=== PATIENT | female | born 1980 | race American Indian/Alaskan Native ===

== ENCOUNTER 2021-10-22 06:02 | Observation (INO) | payer OTHER ==
[2021-09-18 11:59] LABS: Basophils # (Auto) 0.1 K/mm3 (0.0-0.1); Eosinophils # (Auto) 0.1 K/mm3 (0.0-0.4); Eosinophils % (Auto) 2.3 % (0.0-4.3); Hemoglobin 13.6 gm/dl (10.1-14.3); Lymphocytes # (Auto) 2.3 K/mm3 (1.2-5.4); Mean Corpuscular HGB Conc 32 % (30-34); Mean Corpuscular Volume 96 fl (79-97); Monocytes # (Auto) 0.5 K/mm3 (0.0-0.8); Monocytes % (Auto) 9.1 % (0.0-7.3); Platelet Count 234 K/mm3 (140-440); Red Cell Distribution Width 13.5 % (13.2-15.2)
[2021-09-18 12:19] LABS: BUN/Creatinine Ratio 11; Blood Urea Nitrogen 9 mg/dL (7-17); Calcium 9.8 mg/dL (8.4-10.2); Hemolysis Index 0
[2021-10-17 08:48] LABS: Basophils % (Auto) 0.7 % (0.0-1.8); Eosinophils # (Auto) 0.1 K/mm3 (0.0-0.4); Eosinophils % (Auto) 1.6 % (0.0-4.3); Hematocrit 37.2 % (30.3-42.9); Hemoglobin 13.2 gm/dl (10.1-14.3); Lymphocytes # (Auto) 2.3 K/mm3 (1.2-5.4); Lymphocytes % (Auto) 42.1 % (13.4-35.0); Mean Corpuscular HGB Conc 36 % (30-34); Mean Corpuscular Volume 94 fl (79-97); Monocytes # (Auto) 0.5 K/mm3 (0.0-0.8); Monocytes % (Auto) 9.1 % (0.0-7.3); Platelet Count 216 K/mm3 (140-440); Red Blood Count 3.96 M/mm3 (3.65-5.03); Red Cell Distribution Width 14.5 % (13.2-15.2)
[2021-10-17 09:08] LABS: BUN/Creatinine Ratio 14; Blood Urea Nitrogen 13 mg/dL (7-17); Calcium 9.3 mg/dL (8.4-10.2); Hemolysis Index 11
--- NOTE | 2021-10-17 13:47 | Anesthesia Consultation ---
Anesthesia Consult and Med Hx Date of service: 10/22/21 - Airway Anesthetic Teeth Evaluation: Good ROM Head & Neck: Adequate Mental/Hyoid Distance: Adequate Mallampati Class: Class III Intubation Access Assessment: Possibly Difficult - Pulmonary Exam CTA: Yes - Cardiac Exam Cardiac Exam: RRR - Pre-Operative Health Status ASA Pre-Surgery Classification: ASA2 Proposed Anesthetic Plan: General Nerve Block: post op TAP prn - Pulmonary Hx Smoking: No Hx Respiratory Symptoms: No (asymptomatic COVID infection 09/18/21) - Cardiovascular System Hx Hypertension: No Hx Heart Attack/AMI: No - Central Nervous System CVA: No - Endocrine Hx Renal Disease: No Hx Liver Disease: No Hx Insulin Dependent Diabetes: No Hx Non-Insulin Dependent Diabetes: No Hx Thyroid Disease: No - Other Systems Hx Obesity: Yes (BMI 32) - Additional Comments Anesthesia Medical History Comments: No hx anesthetic complications.
--- NOTE | 2021-10-21 12:57 | History and Physical Report ---
History of Present Illness Date of examination: 10/17/21 Date of admission: 10/22/2021 Chief complaint: fibroids, heavy bleeding History of present illness: Pt here for preop for LAVH with BS. All risk/benefits/alternatives were d/w pt and questions were addressed and answered. Consents signed and placed on the chart. Pt was previously scheduled last month but tested positive for Covid 19 and had to be rescheduled. She has no sx today as will follow hospital protocol in terms of resting if needed. She has c/o pelvic pain and bleeding that is heavy at times for the last 6 months. I d/w pt that the procedure planned will address her bleeding but she still may have pain with sex. She expressed understanding and desires to proceed with the LAVH with BS. She does have just one ovary but is not sure which one she has. 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 of genital herpes: no Hx of STD: HPV Active Medications (reviewed today): ibuprofen 800 mg tablet (ibuprofen) Take 1 tablet by mouth every six to eight hours Current Allergies (reviewed today): No known allergies Past Medical History: Negative Past Medical History Past Surgical History: positive Oophrectomy-unsure which side for what sound like a dermoid cyst-2011 hernia repair Risk Factors: Smoked Tobacco Use: Never smoker Smokeless Tobacco Use: Never Passive Smoke Exposure: no HIV High Risk Behavior: no Exercise: yes Seatbelt Use: 100 % Physical Exam Appearance: well developed, well nourished, no acute distress Other Exams Lungs: no rales, rhonchi, or wheezes Heart: S1, S2, no murmur, rub, or gallop Abdomen: soft, non-tender, no masses, bowel sounds normal Extremities: normal alignment, no joint enlargement, crepitus, masses or tenderness; normal tone and strength Genitourinary Exam Comments: deferred until EUA Past History Past Medical History: other (see hpi) Past Surgical History: other (see hpi) Family/Genetic History: other (see hpi) Social history: other (see hpi) Medications and Allergies Allergies Allergy/AdvReac Type Severity Reaction Status Date / Time No Known Allergies Allergy Verified 10/16/21 16:19 Home Medications Medication Instructions Recorded Confirmed Last Taken Type No Known Home Medications [No 09/17/21 10/16/21 Unknown History Reported Home Medications] Active Meds: Active Medications Acetaminophen (Acetaminophen 500 Mg Tab) 1,000 mg PO PREOP MARIA DE JESUS Celecoxib (Celecoxib 200 Mg Cap) 200 mg PO PREOP NR Stop: 10/22/21 23:59 Gabapentin (Gabapentin 300 Mg Cap) 300 mg PO PREOP NR Stop: 10/22/21 06:01 Lactated Ringer's (Lactated Ringers) 1,000 mls @ 100 mls/hr IV DIRECT MARIA DE JESUS Stop: 10/22/21 23:59 Methocarbamol 1,000 mg/ Sodium (Chloride) 260 mls @ 250 mls/hr IV PREOP MARIA DE JESUS Midazolam HCl (Midazolam 2 Mg/2 Ml Inj) 2 mg IV PREOP NR Stop: 10/22/21 23:59 Scopolamine (Scopolamine Transdermal Patch 72 Hr) 1 each TD PREOP NR Stop: 10/22/21 23:59 Review of Systems All systems: negative - Vital Signs Vital signs: Vital Signs Temp Pulse Resp BP Pulse Ox 98.7 F 76 20 119/78 98 09/18/21 11:40 09/18/21 11:40 09/18/21 11:40 09/18/21 11:40 09/18/21 11:40 Temp Pulse Resp BP Pulse Ox 98.7 F 76 20 119/78 98 09/18/21 11:40 09/18/21 11:40 09/18/21 11:40 09/18/21 11:40 09/18/21 11:40 - Physical Exam Cardiovascular: Normal S1, Normal S2 Lungs: Positive: Clear to auscultation, Normal air movement Abdomen: Positive: normal appearance, soft. Negative: distention, tenderness, g uarding Genitourinary (Female): Positive: other (deferred until EUA) Results Result Diagrams: 10/17/21 08:40 10/17/21 08:40 All other labs normal. Assessment and Plan - Patient Problems (1) Fibroid Status: Acute Plan to address problem: -admit for above stated procedure -consent signed and placed on the chart (2) Pelvic pain Status: Acute (3) Menorrhagia Status: Acute
[~2021-10-22 06:02] MED LIST: ACETAMINOPHEN 500 MG TAB PO SCH; CELECOXIB 200 MG CAP PO NR; GABAPENTIN 300 MG CAP PO NR; LACTATED RINGERS 1,000 ML IV SCH; MIDAZOLAM 2 MG/2 ML INJ IV NR; SCOPOLAMINE TRANSDERMAL PATCH 72 HR TD NR; ceFAZolin/Water 2 GM/20 ML 2 GM/20 ML SYRINGE IV SCH; methOCARBAMOL 1,000 MG in SODIUM CHLORIDE 0.9% 250ML 250 ML IV SCH
[2021-10-22] MEDS ORDERED: BUPIVACAINE/PF (0.5%) 5 MG/1 ML 30 ML VIAL INFILTRATI ONE ×2 (07:16→09:15)
[2021-10-22] MEDS ORDERED: SODIUM CHLORIDE 0.9% 100 ML ONE (07:16)
[2021-10-22] MEDS ORDERED: VASOPRESSIN 20 UNIT/1 ML INJ ONE (07:17)
[2021-10-22] MEDS ORDERED: CITRIC ACID-SOD CITRATE 500 ML IV ONE (07:23)
[2021-10-22] MEDS ORDERED: HYDROmorphone 1 MG/1 ML INJ IV PRN (07:24)
--- NOTE | 2021-10-22 07:24 | Anesthesia Day of Surgery ---
Anesthesia Day of Surgery - Day of Surgery Patient Examined: Yes Patient H&P Reviewed: Yes Patient is NPO: Yes
[2021-10-22] MEDS ORDERED: HYDROmorphone 1 MG/1 ML INJ ONE (07:42)
[2021-10-22] MEDS ORDERED: fentaNYL 100 MCG/2 ML INJ ONE (07:42)
[2021-10-22] MEDS ORDERED: ROCURONIUM 50 MG/5 ML INJ IV ONE ×2 (07:42→09:32)
[2021-10-22] MEDS ORDERED: propofoL 200 MG/20 ML VIAL IV ONE (07:42)
[2021-10-22] MEDS ORDERED: LIDOCAINE MPF (2%) 20 MG/1 ML VIAL 5 ML ONE (07:42)
[2021-10-22] MEDS ORDERED: ONDANSETRON 4 MG/2 ML INJ ONE (07:42)
[2021-10-22] MEDS ORDERED: SODIUM CHLORIDE 0.9% IRR 1,500 ML BOTTLE IR ONE (09:14)
[2021-10-22] MEDS ORDERED: SODIUM CHLORIDE 0.9% IRRIG SOLN 2000 ML IR ONE (09:14)
[2021-10-22] MEDS ORDERED: VASOPRESSIN 20 UNIT/1 ML INJ IM ONE (09:14)
[2021-10-22] MEDS ORDERED: CITRIC ACID-SOD CITRATE SOLN 500 ML IV SOLN IV ONE (09:15)
[2021-10-22] MEDS ORDERED: dexAMETHasone 20 MG/5 ML VIAL ONE (09:32)
[2021-10-22] MEDS ORDERED: NEOSTIGMINE 10MG/10 ML INJ MDV ONE (10:39)
[2021-10-22] MEDS ORDERED: LACTATED RINGERS 1,000 ML ONE (10:39)
[2021-10-22] MEDS ORDERED: GLYCOPYRROLATE 0.4 MG/2 ML INJ ONE (10:39)
--- NOTE | 2021-10-22 11:01 | Operative Report ---
Operative Report Operative Report: Date of procedure: 10/22/2021 Pre-operative diagnosis: Fibroid uterus Pelvic pain Menorrhagia Post-operative diagnosis: Same Procedure name(s): Laparoscopic assisted vaginal hysterectomy Left salpingectomy Surgeon: Renee Rider MD Information Systems Technician: Dr. Aurora Michaels Anesthesia: General endotracheal anesthesia EBL: 150 mL Urine output: 500 mL of clear urine out at end of procedure Fluids: 1 L Findings: Normal left ovary with normal left fallopian tube noted. Right fallopian tube and ovary was noted to be absent consistent with patient history of having removal of the ovary. Globular uterus with uterine fibroids noted approximately 3 cm in diameter. Consistency of uterus is that of someone with adenomyosis. Will follow pathology. Indications: Patient presents with above-stated preoperative diagnosis. She desired definitive therapy. All risk benefits and alternatives were discussed with the patient. Consents were signed and placed in the chart. Procedure: Patient was taken to the operating room where she was placed under general endotracheal anesthesia. She was then prepped and draped in sterile fashion. It was at this point that the medium V care uterine manipulator was placed inside of the uterus after the uterus was sounded to approximately 12 cm. Guerrero catheter was also placed at this time. Attention was then turned to the umbilicus in which a supraumbilical incision was made. Under direct visualization the 5 mm trocar was placed inside the peritoneum the peritoneum was then insufflated. As at this point that the laparoscopic portion of the procedure was performed. 2 lateral 5 mm ports were also placed under direct visualization. Using the tripolar instrument the upper pedicles were cauterized and transected to the including round ligament with excellent hemostasis noted bilaterally. Attention was turned to the bladder flap which was also created laparoscopically. Attention was then turned vaginally. A weighted speculum was placed into the vagina and the cervix was grasped with a single-tooth tenaculum 2. The cervix was then injected circumferentially with Pitressin. The cervix was then circumferentially incised with the scalpel and the bladder dissected off of the pubovesical cervical fascia anteriorly with a sponge stick and Metzenbaum scissors. The same procedure was performed posteriorly and the posterior cul-de-sac was entered into sharply without difficulty. At this point a Codi Clamp was placed over the uterosacral ligaments on either side. These were then transected and suture ligated with 0 Vicryl. Hemostasis was assured. The cardinal ligaments were then clamped on both sides transected and suture ligated in similar fashion. The uterine arteries were then serially clamped with Codi clamps transected and suture ligated on both sides. Excellent hemostasis was visualized. After it was clear that the uterus had been completely from all pedicles the uterus was removed vaginally intact with cervix intact. The vaginal cuff angles were closed with figure of 8 stitches of 0 Vicryl on both sides. The peritoneum was incorporated in the stitching of the vaginal cuff. A series of interrupted figure of 8 sutures using 0 Vicryl were used to close the entire vaginal cuff. Excellent hemostasis was noted. The vagina was then irrigated copiously. Attention was then turned laparoscopically at which time. Again all pedicles were noted to be hemostatic. The ureters were identified bilaterally with peristalsis noted bilaterally. All instruments were then removed from the abdomen and the vagina. All gas was released from the abdomen. The abdominal incisions were closed using 4-0 Monocryl. All of the abdominal incisions were injected with Marcaine without epi. Patient tolerated the procedure well sponge lap and needle counts were all correct 3 the patient was taken to the recovery room awake and in stable condition.
--- NOTE | 2021-10-22 12:00 | Post Anesthesia Evaluation ---
- Post Anesthesia Evaluation Patient Participated: Yes Airway Patent: Yes Stable Respiratory Function: Yes Nausea/Vomiting: No Temp > 96.8F: Yes Pain Manageable: Yes Adequeate Hydration: Yes Anesthesia Complications: No
[2021-10-22] MEDS ORDERED: HYDROcodone/ACETAMINOPHEN 5-325 MG TAB PO PRN (12:30)
[2021-10-22] MEDS ORDERED: KETOROLAC 30 MG/1 ML INJ IV PRN (12:30)
[2021-10-22] MEDS ORDERED: IBUPROFEN 800 MG TAB PO PRN (12:30)
[2021-10-22] MEDS ORDERED: ACETAMINOPHEN 325 MG TAB PO PRN ×2 (12:30→15:30)
[2021-10-22] MEDS ORDERED: ONDANSETRON 4 MG/2 ML INJ IV PRN (12:30)
[2021-10-22] MEDS: MORPHINE 4 MG/1 ML INJ IV PRN ×2 (13:12→22:14)
[2021-10-22] MEDS ORDERED: MORPHINE 2 MG/1 ML INJ IV ONE ×2 (14:29)
[2021-10-22] MEDS: ceFAZolin/NS 1 GM/50 ML 1 GM/50 ML BAG IV SCH (16:19)
[2021-10-22] MEDS: KETOROLAC 30 MG/1 ML INJ IV SCH (17:45)
[2021-10-22] MEDS ORDERED: METOCLOPRAMIDE 10 MG/2 ML INJ IV PRN (17:48)
[2021-10-22] MEDS ORDERED: METOCLOPRAMIDE 10 MG/2 ML INJ IV ONE (17:54)
[2021-10-22] MEDS ORDERED: D5W/LACTATED RINGERS 1,000 ML IV SCH (18:00)
[2021-10-22] MEDS: FAMOTIDINE 20 MG/2 ML INJ IV SCH (18:03)
[2021-10-22] MEDS: D5W/0.9% NACL 1,000 ML IV SCH (18:03)
[2021-10-22 20:07] LABS: Blood Urea Nitrogen 7 mg/dL (7-17); Hemolysis Index 2
[2021-10-22 20:08] LABS: BUN/Creatinine Ratio 10
[2021-10-23] MEDS: FAMOTIDINE 20 MG/2 ML INJ IV SCH (00:45)
[2021-10-23] MEDS: KETOROLAC 30 MG/1 ML INJ IV SCH ×2 (00:45→06:33)
[2021-10-23] MEDS: D5W/0.9% NACL 1,000 ML IV SCH (00:50)
[2021-10-23] MEDS: ceFAZolin/NS 1 GM/50 ML 1 GM/50 ML BAG IV SCH (00:51)
[2021-10-23 05:16] LABS: Hematocrit 33.4 % (30.3-42.9); Hemoglobin 11.2 gm/dl (10.1-14.3)
--- NOTE | 2021-10-23 08:52 | Progress Note ---
Assessment and Plan - Patient Problems (1) Fibroid Current Visit: No Status: Acute (2) Pelvic pain Current Visit: No Status: Acute (3) Menorrhagia Current Visit: No Status: Acute (4) S/P laparoscopic assisted vaginal hysterectomy (LAVH) Current Visit: Yes Status: Acute Plan to address problem: -routine post op care -n/v resolved. ADAT -plan for d/c this pm if tolerates breakfast and lunch w/o emesis Subjective - Subjective Date of service: 10/23/21 Principal diagnosis: POD #1 s/p LAVH and LS Interval history: Pt doing well states she has no nausea at this time and no emesis since yesterday pm. She has good bowel sounds on exam.She desires to eat this time. Will do clears now and progress to regular at lunch. I advised that if she does well we will plan for d/c home this pm. Pt smiling and states pain is well controlled. Findings of sx d/w pt. She states she did not do the bowel prep diet prior to sx. I advised that this combined with the narcotic meds she received my have induced nausea and emesis. She expressed understanding and agrees with plan of care. Patient reports: appetite normal, voiding normally, pain well controlled, no dizzy ambulation, no nauseated Objective - Vital Signs Latest vital signs: Vital Signs Temp Pulse Resp Resp BP BP Pulse Ox 10/23/21 07:29 98.4 F 74 18 106/53 100 10/23/21 06:33 16 10/23/21 04:15 98.6 F 69 16 117/67 10/23/21 00:45 16 10/22/21 22:14 18 10/22/21 22:00 18 98 10/22/21 19:55 98.5 F 106 H 18 119/70 100 10/22/21 18:22 98.5 F 86 20 134/73 100 10/22/21 12:15 97 10/22/21 12:10 97.7 F 77 16 145/83 96 10/22/21 12:00 97.7 F 79 17 145/83 97 10/22/21 11:45 68 15 120/63 99 10/22/21 11:30 70 13 118/63 98 10/22/21 11:15 69 15 104/61 99 10/22/21 11:09 72 13 120/73 100 10/22/21 11:04 83 14 116/69 100 10/22/21 10:59 98.0 F 78 12 106/54 100 Intake and Output 10/22/21 10/23/21 10/23/21 22:59 06:59 14:59 Intake Total 250 847.917 Output Total 1200 700 Balance -950 147.917 Intake: IV 50 847.917 ANCEF/NS 1 GM/50 ML 1 gm 50 In 50 ml @ 100 mls/hr IV Q8H MARIA DE JESUS Rx#:[id number] D5ns 1,000 ml @ 125 mls/ 847.917 hr IV DIRECT MARIA DE JESUS Rx#: [id number] Oral 200 Output: Urine 1200 700 Indwelling Catheter 1200 700 Other: Total, Intake Amount 200 Total, Output Amount 600 700 Voiding Method Indwelling Catheter Indwelling Catheter - Exam Cardiovascular: Present: Normal S1, Normal S2 Lungs: Present: Clear to auscultation, Normal air movement Abdomen: Present: normal appearance, soft, normal bowel sounds. Absent: distention, tenderness, guarding Deep Tendon Reflex Grade: Normal +2 Incision: Present: normal, dry, intact - Labs Labs: Abnormal lab results 10/22/21 10/22/21 Range/Units 19:22 20:43 Sodium 135 L (137-145) mmol/L Carbon Dioxide 20 L (22-30) mmol/L Glucose 444 H (65-100) mg/dL POC Glucose 125 H (70-105) mg/dL Calcium 8.0 L (8.4-10.2) mg/dL
--- NOTE | 2021-10-23 08:53 | Discharge Summary ---
Providers - Providers Date of Admission: 10/22/21 11:01 Date of discharge: 10/23/21 Attending physician: CHELY FLYNN Hospitalization Reason for admission: other (fibroids;pelvic pain) Procedure: other (LAVH with LS) Procedure details: see op note Incision: normal, dry, intact Condition at discharge: Good Disposition: 01 HOME / SELF CARE / HOMELESS - Discharge Diagnoses (1) Fibroid Status: Acute (2) Pelvic pain Status: Acute (3) Menorrhagia Status: Acute (4) S/P laparoscopic assisted vaginal hysterectomy (LAVH) Status: Acute Plan - Discharge Medications Prescriptions: Docusate Sodium [Colace] 100 mg PO BID PRN #60 capsule PRN Reason: Constipation Ferrous Sulfate [Feosol 325 MG tab] 325 mg PO QDAY #60 tablet Ibuprofen [Motrin 800 MG tab] 800 mg PO Q8HR PRN #30 tablet PRN Reason: Pain, Moderate (4-6) oxyCODONE /ACETAMINOPHEN [Percocet 5/325] 1 tab PO Q4HR #10 tab - Provider Discharge Summary Activity: routine, no sex for 6 weeks, no heavy lifting 4 weeks, no strenuous exercise Diet: routine Instructions: routine Additional instructions: [] Smoking cessation referral if applicable(refer to patient education folder for contact #) [] Refer to [facility] Booklet Call your doctor immediately for: * Fever > 100.5 * Heavy vaginal bleeding ( >1 pad per hour) * Severe persistent headache * Shortness of breath * Reddened, hot, painful area to leg or breast * Drainage or odor from incision. * Keep incision clean and dry at all times and follow doctor's instructions regarding bathing/showering - Follow up plan Follow up: ALAYNA CASTANEDA [Other] - 7 Days
[2021-10-23] MEDS ORDERED: IBUPROFEN 800 MG TAB PO PRN (12:30)
--- NOTE | 2021-10-23 14:06 | Post Anesthesia Evaluation ---
- Post Anesthesia Evaluation Patient Participated: Yes Airway Patent: Yes Stable Respiratory Function: Yes Nausea/Vomiting: Yes (reports N/V immediately post op but has improved since last night.) Temp > 96.8F: Yes Pain Manageable: Yes Adequeate Hydration: Yes Anesthesia Complications: No Block Receding Appropriately: Not Applicable Patient on Ventilator: No
[2021-10-23 17:10] VITALS: BP 122/68
== END 2021-10-23 16:15 | disposition home or self-care (01) ==
LOC: OR 06:02 → OB 11:01
PROVIDERS: ADMIT Obstetrics & Gynecology; ATTEND Obstetrics & Gynecology
DX: D25.1 Intramural leiomyoma of uterus (principal); Z20.822 Contact with and (suspected) exposure to COVID-19; N92.0 Excessive and frequent menstruation with regular cycle; N93.9 Abnormal uterine and vaginal bleeding, unspecified; R10.2 Pelvic and perineal pain; Z79.899 Other long term (current) drug therapy; Z98.890 Other specified postprocedural states
CPT/HCPCS: 36415; 58552; 80048; 82962; 84703; 85014; 85018; 85025; 86850; 86900; 86901; 88302; 88307; 96361; 96365; 96366; 96375; 96376; G0378; J0690; J1100; J1170; J1815; J1885; J2250; J2270; J2405; J2704; J2710; J2765; J2800; J3010; J3490; J7042; J7050; J7120; U0003